=== PATIENT | male | born 1990 | race Caucasian/White ===

== ENCOUNTER 2019-05-25 11:43 | Outpatient (CLI) | payer BC ==
--- NOTE | 2019-05-25 13:02 | RAD ---
LEFT FOOT 3 VIEWS: Date: 05/25/2019 HISTORY: Pain in third and fourth toe region. FINDINGS: There are no signs of fracture or any bony erosive change. No soft tissue mass. IMPRESSION: Unremarkable left foot. POS: [facility]
== END 2019-05-25 11:44 | disposition home or self-care (01) ==
LOC: BICRAD 11:43
PROVIDERS: ATTEND Podiatrist
DX: M79.675 Pain in left toe(s) (principal)

== ENCOUNTER 2021-09-06 09:30 | Outpatient (CLI) | payer BC | END 2021-09-06 09:31 | disposition home or self-care (01) | LOC: PET 09:30 | PROVIDERS: ATTEND Internal Medicine Hematology & Oncology | DX: C82.15 Follicular lymphoma grade II, lymph nodes of inguinal region and lower limb (principal) | CPT/HCPCS: 78815; A9552 ==